=== PATIENT | female | born 1985 | race American Indian/Alaskan Native ===

== ENCOUNTER 2018-12-29 15:14 | Emergency (ER) | payer SELFPAY ==
[2018-12-29 15:29] VITALS: BP 152/99
[2018-12-29] MEDS ORDERED: Diphtheria,Pertussis(Acell),Tetanus Vaccine 0.5 ML SDV IM ONE (15:32)
[2018-12-29] MEDS ORDERED: Bacitracin Oint 1 GM U/D Packet TOP ONE (15:33)
[2018-12-29] MEDS ORDERED: Lidocaine 1% 30 ML SDV INJECT ONE (15:33)
--- NOTE | 2018-12-29 15:53 | CR ---
Clinical history: 33-year-old female "slammed fingers in door. Interpretation: 3 views right index middle and ring fingers reveal some mild soft tissue swelling particularly index finger. No sign of foreign body, definite fracture or dislocation fingers right hand. Note: Subtle lucency terminal tuft/distal end of the distal phalanx, index (second) finger right hand that could represent an occult nondisplaced fracture. Clinical point tenderness? No joint involvement.
--- NOTE | 2018-12-29 16:23 | EDM.PDOC ---
Scribed by Dee Nixon 12/29/18 1623 for Nabil Cooley PA ED HPI GENERAL MEDICAL PROBLEM - General Chief Complaint: Laceration Stated Complaint: CUT TIP OF FINGER Time Seen by Provider: 12/29/18 15:30 Source of Information: Reports: Patient, RN, RN Notes Reviewed History Limitations: Reports: No Limitations - History of Present Illness INITIAL COMMENTS - FREE TEXT/NARRATIVE: Patient is a 33-year-old female right distal 2nd finger that she caught in a car door. Onset: Today Location: Reports: Upper Extremity, Right Quality: Reports: Ache Severity: Moderate Improves with: Reports: None Worsens with: Reports: None Associated Symptoms: Reports: No Other Symptoms - Related Data Allergies Allergy/AdvReac Type Severity Reaction Status Date / Time No Known Drug Allergies Allergy Other Verified 04/27/16 00:43 Past Medical History - Past Health History Medical/Surgical History: Denies Medical/Surgical History Social & Family History - Family History Family Medical History: Noncontributory - Tobacco Use Smoking Status *Q: Never Smoker Second Hand Smoke Exposure: No ED ROS GENERAL - Review of Systems Review Of Systems: ROS reveals no pertinent complaints other than HPI. ED EXAM, SKIN/RASH Exam: See Below Exam Limited By: No Limitations General Appearance: Alert, WD/WN, No Apparent Distress Eye Exam: Bilateral Eye: EOMI, Normal Inspection, PERRL Ears: Normal External Exam, Normal Canal, Hearing Grossly Normal, Normal TMs Nose: Normal Inspection, Normal Mucosa, No Blood Throat/Mouth: Normal Inspection, Normal Lips, Normal Teeth, Normal Gums, Normal Oropharynx, Normal Voice, No Airway Compromise Head: Atraumatic, Normocephalic Neck: Normal Inspection, Supple, Non-Tender, Full Range of Motion Respiratory/Chest: No Respiratory Distress, Lungs Clear, Normal Breath Sounds, No Accessory Muscle Use, Chest Non-Tender Cardiovascular: Normal Peripheral Pulses, Regular Rate, Rhythm, No Edema, No Gallop, No JVD, No Murmur, No Rub GI/Abdominal: Normal Bowel Sounds, Soft, Non-Tender, No Organomegaly, No Distention, No Abnormal Bruit, No Mass (Female) Exam: Deferred Rectal (Female) Exam: Deferred Back Exam: Normal Inspection, Full Range of Motion, NT Extremities: Other (right distal 2nd finger laceration) Neurological: Alert Psychiatric: Normal Affect, Normal Mood Skin: Other (right distal 2nd finger laceration) Lymphatic: No Adenopathy ED SKIN PROCEDURES - Laceration/Wound Repair Right Distal Digit - 2nd (Index) Lac/Wound length In cm: 1.0 Appearance: Subcutaneous Distal NVT: Neuro & Vascular Intact Anesthetic Type: Local Local Anesthesia - Lidocaine (Xylocaine): 1% Plain Local Anesthetic Volume: 2cc Skin Prep: Chlorhexidine (Hibiciens) Exploration/Debridement/Repair: Wound Explored, In a Bloodless Field, Explored to Base, No Foreign Material Found Closed with: Sutures Suture Size: other (5-0) # of Sutures: 3 Suture Type: Prolene, Interrupted, Simple Drain Placement: No Sterile Dressing Applied: Nurse Tetanus Status Addressed: Yes Complications: No Course - Vital Signs Last Recorded V/S: Last Vital Signs Temp 36.9 C 12/29/18 15:17 Pulse 66 12/29/18 15:17 Resp 16 12/29/18 15:17 BP 152/99 H 12/29/18 15:17 Pulse Ox 96 12/29/18 15:17 - Orders/Labs/Meds Orders: Active Orders 24 hr Category Date Time Status Vaccines to be Administered [RC] PER UNIT ROUTINE Care 12/29/18 15:33 Active Meds: Medications Discontinued Medications Generic Name Dose Route Start Last Admin Trade Name Jwq PRN Reason Stop Dose Admin Bacitracin 1 dose 12/29/18 15:33 12/29/18 15:45 Bacitracin Oint 1 Gm TOP 12/29/18 15:34 1 dose ONETIME ONE Administration Diphtheria/Tetanus/Acell Pertussis 0.5 ml 12/29/18 15:32 12/29/18 15:44 Adacel IM 12/29/18 15:33 0.5 ml .ONCE ONE Administration Lidocaine HCl 30 ml 12/29/18 15:33 12/29/18 15:45 Xylocaine-Mpf 1% INJECT 12/29/18 15:34 30 ml ONETIME ONE Administration Departure - Departure Time of Disposition: 16:21 Disposition: Home, Self-Care 01 Condition: Fair Clinical Impression: Open fracture of tuft of distal phalanx of finger, Laceration of index finger of right hand without complication - Discharge Information *PRESCRIPTION DRUG MONITORING PROGRAM REVIEWED*: Not Applicable *COPY OF PRESCRIPTION DRUG MONITORING REPORT IN PATIENT STEVE: Not Applicable Instructions: Laceration Care, Adult, [id number], Stitches, Alec, or Adhesive Wound Closure, [id number] Forms: ED Department Discharge Care Plan Goals: The patient was advised of the examination results during the visit. The laceration margins were well approximated during the visit. The patient should keep the area clean and dry over the next 24 hours. The patient should have the sutures removed in about 14 days. If the patient has any additional symptoms or concerns, the patient should either return to the emergency department or follow -up with her primary care facility. - My Orders Last 24 Hours: My Active Orders 12/29/18 15:33 Vaccines to be Administered [RC] PER UNIT ROUTINE - Assessment/Plan Last 24 Hours: My Active Orders 12/29/18 15:33 Vaccines to be Administered [RC] PER UNIT ROUTINE I have read and agree with the documentation that has been completed regarding this visit. By signing this record, I attest that the documentation was completed in my physical presence and is an accurate record of the encounter.
== END 2018-12-29 16:30 | disposition home or self-care (01) ==
LOC: DL.ED 15:14
DX: S62.660A Nondisplaced fracture of distal phalanx of right index finger, initial encounter for closed fracture (principal); S61.210A Laceration without foreign body of right index finger without damage to nail, initial encounter; Z23 Encounter for immunization; W23.0XXA Caught, crushed, jammed, or pinched between moving objects, initial encounter
CPT/HCPCS: 12001; 73140; 90471; 90715; 99283; J2001

== ENCOUNTER 2020-05-17 19:49 | Emergency (ER) | payer SELFPAY ==
[2020-05-17 20:03] VITALS: BP 141/85; PULSE 94
--- NOTE | 2020-05-17 20:03 | EDM.PDOC ---
ED HPI GENERAL MEDICAL PROBLEM - General Chief Complaint: Lower Extremity Injury/Pain Stated Complaint: DROPPED A LOG BENCH ON HER LEFT FOOT Time Seen by Provider: 05/17/20 20:03 Source of Information: Reports: Patient, RN, RN Notes Reviewed History Limitations: Reports: No Limitations - History of Present Illness INITIAL COMMENTS - FREE TEXT/NARRATIVE: Patient presents to ER with complaint of pain to the left foot. Patient states she was moving a log bench with someone, when it dropped on her left foot. Patient rates the pain 8/10. Denies any chances of . Denies pain to the ankle and above. Patient is able to wiggle her toes, CMS intact. Onset: Today, Sudden Left Foot Pain Score (Numeric/FACES): 10 - Related Data Allergies Allergy/AdvReac Type Severity Reaction Status Date / Time No Known Drug Allergies Allergy Other Verified 05/17/20 20:03 Home Meds: Home Meds . [No Known Home Meds] 05/17/20 [History] Past Medical History - Past Health History Medical/Surgical History: Denies Medical/Surgical History Social & Family History - Family History Family Medical History: Noncontributory - Tobacco Use Smoking Status *Q: Current Status Unknown Second Hand Smoke Exposure: No - Caffeine Use Caffeine Use: Reports: None - Recreational Drug Use Recreational Drug Use: No Review of Systems - Review of Systems Review Of Systems: Comprehensive ROS is negative, except as noted in HPI. ED EXAM, GENERAL - Physical Exam Exam: See Below Exam Limited By: No Limitations General Appearance: Alert, WD/WN, Moderate Distress Eye Exam: Bilateral Eye: EOMI, Normal Inspection Ears: Normal External Exam, Hearing Grossly Normal Nose: Normal Inspection Throat/Mouth: Normal Inspection, Normal Voice, No Airway Compromise Head: Atraumatic, Normocephalic Neck: Normal Inspection, Supple, Non-Tender, Full Range of Motion Respiratory/Chest: No Respiratory Distress, Lungs Clear, Normal Breath Sounds, No Accessory Muscle Use, Chest Non-Tender Cardiovascular: Normal Peripheral Pulses, Regular Rate, Rhythm, No Edema, No Gallop, No JVD, No Murmur, No Rub Peripheral Pulses: 2+: Radial (L), Radial (R), Dorsalis Pedis (L), Dorsalis Pedis (R) GI/Abdominal: Normal Bowel Sounds, Soft, Non-Tender (Female) Exam: Deferred Rectal (Female) Exam: Deferred Back Exam: Normal Inspection, Full Range of Motion, NT Extremities: Other (left foot pain). No: Joint Swelling, Redness Neurological: Alert, Oriented, CN II-XII Intact, Normal Cognition, Normal Reflexes, No Motor/Sensory Deficits Psychiatric: Normal Affect, Anxious, Tearful Skin Exam: Warm, Dry, Intact, Normal Color, No Rash Lymphatic: No Adenopathy Course - Vital Signs Last Recorded V/S: Last Vital Signs Temp 98.4 F 05/17/20 19:57 Pulse 94 05/17/20 19:57 Resp 19 05/17/20 19:57 BP 141/85 H 05/17/20 19:57 Pulse Ox 99 05/17/20 19:57 - Orders/Labs/Meds Meds: Medications Discontinued Medications Generic Name Dose Route Start Last Admin Trade Name Freq PRN Reason Stop Dose Admin Acetaminophen 650 mg 05/17/20 20:14 05/17/20 20:25 Tylenol PO 05/17/20 20:15 650 mg NOW ONE Administration - Radiology Interpretation Free Text/Narrative:: Left foot xray: PROCEDURE INFORMATION: Exam: XR Left Foot Complete Exam date and time: 05/17/2020 8:16 PM Age: 35 years old Clinical indication: Other: Pain; Additional info: Log bench fell on foot TECHNIQUE: Imaging protocol: XR Left foot. Views: 3 or more views. COMPARISON: No relevant prior studies available. FINDINGS: Bones/joints: There is an acute minimally displaced vertical fracture through the left 1st distal phalanx. Extends intra-articular. Soft tissues: Normal. IMPRESSION: Acute minimally displaced intra-articular fracture distal phalanx left great toe. Thank you for allowing us to participate in the care of your patient. Dictated and Authenticated by: Stevan Denise MD 05/17/2020 8:33 PM Central Time ([place] & [place]) See rad report Departure - Departure Time of Disposition: 20:47 Disposition: Home, Self-Care 01 Condition: Good Clinical Impression: Fracture of distal phalanx of toe of left foot - Discharge Information *PRESCRIPTION DRUG MONITORING PROGRAM REVIEWED*: No *COPY OF PRESCRIPTION DRUG MONITORING REPORT IN PATIENT STEVE: No Instructions: Toe Fracture, [id number] Forms: ED Department Discharge Additional Instructions: Wear walking show when up and around Ice to the area as tolerated Elevate the foot when possible Rest the foot for the next few days Follow up with Ortho or Podiatry in [place]. May see someone who comes to the [facility] Kayli Merritt if they have appointments available in the next few weeks. May use Tylenol and/or Ibuprofen as directed for pain. Sepsis Event Note (ED) - Evaluation Sepsis Screening Result: No Definite Risk - Focused Exam Vital Signs: Vital Signs Temp Pulse Resp BP Pulse Ox 05/17/20 19:57 98.4 F 94 19 141/85 H 99
[2020-05-17] MEDS ORDERED: Acetaminophen 325 MG Tab PO ONE (20:14)
--- NOTE | 2020-05-17 20:33 | CR ---
PROCEDURE INFORMATION: Exam: XR Left Foot Complete Exam date and time: 05/17/2020 8:16 PM Age: 35 years old Clinical indication: Other: Pain; Additional info: Log bench fell on foot TECHNIQUE: Imaging protocol: XR Left foot. Views: 3 or more views. COMPARISON: No relevant prior studies available. FINDINGS: Bones/joints: There is an acute minimally displaced vertical fracture through the left 1st distal phalanx. Extends intra-articular. Soft tissues: Normal. IMPRESSION: Acute minimally displaced intra-articular fracture distal phalanx left great toe.
== END 2020-05-17 21:15 | disposition home or self-care (01) ==
LOC: DL.ED 19:49
DX: S92.422A Displaced fracture of distal phalanx of left great toe, initial encounter for closed fracture (principal); W20.8XXA Other cause of strike by thrown, projected or falling object, initial encounter
CPT/HCPCS: 73630; 99283; A9270